=== PATIENT | female | born 1965 | race Caucasian/White ===

== ENCOUNTER 2018-01-16 10:05 | Emergency (ER) | payer MEDICAID ==
[~2018-01-16] VITALS: Ht 162.6 cm; Wt 90.0 kg
[2018-01-16 10:24] VITALS: BP 136/88
[2018-01-16] MEDS ORDERED: CLON0.5T12 PO (11:08)
== END 2018-01-16 11:31 | disposition home or self-care (01) ==
LOC: ER 10:06
DX: F41.9 Anxiety disorder, unspecified (principal); J44.9 Chronic obstructive pulmonary disease, unspecified; F17.200 Nicotine dependence, unspecified, uncomplicated; Z76.0 Encounter for issue of repeat prescription; Z59.0 Homelessness; Z88.2 Allergy status to sulfonamides; Z88.8 Allergy status to other drugs, medicaments and biological substances; Z79.899 Other long term (current) drug therapy
CPT/HCPCS: 99284

== ENCOUNTER 2018-02-27 18:28 | Emergency (ER) | payer MEDICAID ==
[~2018-02-27] VITALS: Ht 162.6 cm; Wt 102.7 kg
[~2018-02-27 18:28] MED LIST: CLON0.5T12 PO
[2018-02-27 18:30] VITALS: BP 126/69
[2018-02-27] MEDS ORDERED: ALBU18HF2 IH (18:54)
== END 2018-02-27 19:05 | disposition home or self-care (01) ==
LOC: ER 18:29
DX: J44.9 Chronic obstructive pulmonary disease, unspecified (principal); F41.9 Anxiety disorder, unspecified; R05 Cough; R06.02 Shortness of breath; F17.210 Nicotine dependence, cigarettes, uncomplicated; Z59.0 Homelessness; Z56.0 Unemployment, unspecified; Z88.2 Allergy status to sulfonamides; Z88.1 Allergy status to other antibiotic agents; Z76.0 Encounter for issue of repeat prescription
CPT/HCPCS: 99283

== ENCOUNTER 2018-07-17 17:32 | Emergency (ER) | payer MEDICAID ==
[~2018-07-17] VITALS: Ht 162.6 cm; Wt 104.5 kg
[~2018-07-17 17:32] MED LIST changes: +ALBU18HF2 IH; +CLON-527 PO; +DEC4T PO
[2018-07-17 17:43] VITALS: BP 148/77
[2018-07-17] MEDS ORDERED: MECL-111 PO (19:05)
== END 2018-07-17 19:16 | disposition home or self-care (01) ==
LOC: ER 17:33
DX: R42 Dizziness and giddiness (principal); E78.00 Pure hypercholesterolemia, unspecified; I10 Essential (primary) hypertension; J44.9 Chronic obstructive pulmonary disease, unspecified; Z59.0 Homelessness; Z56.0 Unemployment, unspecified; Z88.2 Allergy status to sulfonamides; Z88.1 Allergy status to other antibiotic agents; Z79.899 Other long term (current) drug therapy
CPT/HCPCS: 99283

== ENCOUNTER 2018-07-28 15:25 | Emergency (ER) | payer MEDICAID ==
[~2018-07-28] VITALS: Ht 162.6 cm; Wt 110.0 kg
[~2018-07-28 15:25] MED LIST changes: +MECL-111 PO
[2018-07-28 15:32] VITALS: BP 115/80
[2018-07-29] MEDS ORDERED: ALBU6.7H INH (06:29)
[2018-07-29] MEDS ORDERED: AZIT250T PO (06:29)
[2018-07-29] MEDS ORDERED: NAPR-56 PO (07:31)
== END 2018-07-28 17:57 | disposition left against medical advice (07) ==
LOC: ER 15:26
DX: J02.9 Acute pharyngitis, unspecified (principal); Z53.21 Procedure and treatment not carried out due to patient leaving prior to being seen by health care provider

== ENCOUNTER 2018-09-05 09:00 | Emergency (ER) | payer MEDICAID ==
[~2018-09-05] VITALS: Ht 162.6 cm; Wt 113.2 kg
[~2018-09-05 09:00] MED LIST changes: +ALBU6.7H INH; +AZIT250T PO
[2018-09-05 09:13] VITALS: BP 192/83
== END 2018-09-05 09:41 | disposition home or self-care (01) ==
LOC: ER 09:01
DX: M25.522 Pain in left elbow (principal); I10 Essential (primary) hypertension; E66.9 Obesity, unspecified; E78.00 Pure hypercholesterolemia, unspecified; J44.9 Chronic obstructive pulmonary disease, unspecified; Z59.0 Homelessness; Z56.0 Unemployment, unspecified; Z88.1 Allergy status to other antibiotic agents; Z88.2 Allergy status to sulfonamides
CPT/HCPCS: 99281

== ENCOUNTER 2019-05-22 09:39 | Emergency (ER) | payer MEDICAID ==
[~2019-05-22] VITALS: Ht 162.6 cm; Wt 115.0 kg
[~2019-05-22 09:39] MED LIST changes: -ALBU6.7H INH; +ALBU6.7H9 INH; -CLON0.5T12 PO; +CLON0.5T4 PO
[2019-05-22 10:52] LABS: BASOPHILS # (AUTO) 0.2 X10'3 (0-0.2); EOSINOPHILS # (AUTO) 0.3 X10'3 (0-0.9); EOSINOPHILS % (AUTO) 3.6 % (0-6); HEMATOCRIT 44.8 % (35.0-45.0); HEMOGLOBIN 15.2 g/dl (12.0-16.0); LYMPHOCYTES # (AUTO) 2.9 X10'3 (1.1-4.8); LYMPHOCYTES % (AUTO) 32.2 % (21-51); MEAN CORPUSCULAR HEMOGLOBIN 31.6 PG (27.0-31.0); MEAN CORPUSCULAR HGB CONC 33.9 g/dL (33.0-36.5); MEAN CORPUSCULAR VOLUME 93.4 FL (78-98); MEAN PLATELET VOLUME 10.4 FL (7.4-10.4); MONOCYTES # (AUTO) 0.7 X10'3 (0-0.9); MONOCYTES % (AUTO) 7.2 % (2-12); PLATELET COUNT 246 X10'3 (140-440); RED CELL DISTRIBUTION WIDTH 13.1 % (11.5-14.5); WHITE BLOOD COUNT 9.1 X10'3 (4.5-11.0)
[2019-05-22 10:52] LABS: CLARITY,URINE CLEAR (Clear); COLOR,URINE YELLOW (Yellow); GLUCOSE, URINE NEGATIVE (Neg); KETONES,URINE NEGATIVE (Neg); LEUKOCYTE ESTERASE ,URINE NEGATIVE (Neg); NITRITES, URINE NEGATIVE (Neg); OCCULT BLOOD,URINE NEGATIVE (Neg); PROTEIN,URINE NEGATIVE (Neg); UA COLLECTION TYPE CLN CATCH MIDSTREAM; URINE HCG NEGATIVE (NEG); UROBILINOGEN,URINE 0.2 E.U/dL (0.2-1.0)
[2019-05-22 11:03] LABS: ALANINE AMINOTRANSFERASE 26 U/L (12-78); ALBUMIN 3.5 G/DL (3.4-5.0); ALBUMIN/GLOBULIN RATIO 0.9 (1.1-1.5); ALKALINE PHOSPHATASE 63 IU/L (46-116); ANION GAP 5 (8-16); ASPARTATE AMINO TRANSFERASE 11 U/L (10-37); BILIRUBIN,TOTAL 0.3 MG/DL (0.1-1.0); BLOOD UREA NITROGEN 15 MG/DL (7-18); BUN/CREATININE RATIO 18.8 (6.6-38.0); CALCIUM 8.7 MG/DL (8.5-10.1); CHLORIDE 107 MMOL/L (99-107); GLUCOSE 93 MG/DL (70-104); POTASSIUM 4.2 MMOL/L (3.5-5.1); SODIUM 140 MMOL/L (135-145); TOTAL PROTEIN 7.4 G/DL (6.4-8.2); eGFR 75 ML/MIN
[2019-05-22 11:09] VITALS: BP 136/75
== END 2019-05-22 11:27 | disposition home or self-care (01) ==
LOC: ER 09:39
DX: R10.9 Unspecified abdominal pain (principal); E78.00 Pure hypercholesterolemia, unspecified; I10 Essential (primary) hypertension; J44.9 Chronic obstructive pulmonary disease, unspecified; F41.9 Anxiety disorder, unspecified; E66.9 Obesity, unspecified; Z88.2 Allergy status to sulfonamides; Z88.1 Allergy status to other antibiotic agents; Z79.899 Other long term (current) drug therapy; Z79.2 Long term (current) use of antibiotics; Z59.0 Homelessness; Z56.0 Unemployment, unspecified
CPT/HCPCS: 36415; 80053; 81003; 81025; 85025; 99283

== ENCOUNTER 2019-06-10 09:07 | Emergency (ER) | payer MEDICAID ==
[~2019-06-10] VITALS: Ht 162.6 cm; Wt 150.0 kg
[2019-06-10 09:18] VITALS: BP 133/71
[2019-06-10] MEDS ORDERED: guaiFENesin/DM/phenylephrine syrup 120ml bottle PO ONE (10:55)
[2019-06-10] MEDS ORDERED: benzonatate 100mg capsule PO ONE (10:55)
[2019-06-10] MEDS ORDERED: BENZ-16 PO (10:58)
[2019-06-10] MEDS ORDERED: ROBCFL PO (10:58)
[2019-06-10] MEDS ORDERED: ALBU8HFA PO (10:58)
[2019-06-10] MEDS ORDERED: guaiFENesin/DM 10ml UD oral syrup PO ONE (11:05)
== END 2019-06-10 11:38 | disposition home or self-care (01) ==
LOC: ER 09:07
DX: J20.9 Acute bronchitis, unspecified (principal); E78.00 Pure hypercholesterolemia, unspecified; I10 Essential (primary) hypertension; J44.9 Chronic obstructive pulmonary disease, unspecified; F41.9 Anxiety disorder, unspecified; Z56.0 Unemployment, unspecified; Z59.0 Homelessness; Z88.2 Allergy status to sulfonamides; Z88.1 Allergy status to other antibiotic agents; Z79.899 Other long term (current) drug therapy
CPT/HCPCS: 71045; 99283

== ENCOUNTER 2019-11-26 09:29 | Emergency (ER) | payer MEDICAID ==
[~2019-11-26] VITALS: Ht 162.6 cm; Wt 105.7 kg
[~2019-11-26 09:29] MED LIST changes: -MECL-111 PO; +MECL-159 PO
--- NOTE | 2019-11-26 10:45 | NUR ---
pt came back from x ray by herself ,no discomfort noted.
--- NOTE | 2019-11-26 11:12 | NUR ---
Pt resting comfortably in no acute distress.
--- NOTE | 2019-11-26 11:35 | NUR ---
Pt provided jello and cup of water for PO challenge. Will reassess Pt tolerance.
--- NOTE | 2019-11-26 11:40 | NUR ---
Pt tolerated PO challenge with no c/o N/V.
[2019-11-26 12:06] VITALS: BP 142/77
== END 2019-11-26 11:55 | disposition home or self-care (01) ==
LOC: ER 09:30
DX: T18.9XXA Foreign body of alimentary tract, part unspecified, initial encounter (principal); K13.79 Other lesions of oral mucosa; R10.12 Left upper quadrant pain; K56.7 Ileus, unspecified; Z59.0 Homelessness; Z56.0 Unemployment, unspecified; Z88.0 Allergy status to penicillin; Z79.899 Other long term (current) drug therapy; X58.XXXA Exposure to other specified factors, initial encounter; Y93.89 Activity, other specified; Y92.89 Other specified places as the place of occurrence of the external cause; Y99.8 Other external cause status
CPT/HCPCS: 74018; 99283

== ENCOUNTER 2020-01-09 09:47 | Emergency (ER) | payer MEDICAID ==
[~2020-01-09] VITALS: Ht 162.6 cm; Wt 106.4 kg
[2020-01-09 10:51] LABS: CLARITY,URINE TURBID (Clear); COLOR,URINE STRAW (Yellow); GLUCOSE, URINE NEGATIVE (Neg); KETONES,URINE NEGATIVE (Neg); LEUKOCYTE ESTERASE ,URINE LARGE (Neg); NITRITES, URINE NEGATIVE (Neg); OCCULT BLOOD,URINE LARGE (Neg); PROTEIN,URINE 30 mg/dl (Neg); UROBILINOGEN,URINE 0.2 E.U/dL (0.2-1.0)
[2020-01-09 10:53] LABS: UA COLLECTION TYPE CLN CATCH MIDSTREAM
[2020-01-09] MEDS ORDERED: CEPH500C5 PO (11:04)
[2020-01-09] MEDS ORDERED: cephalexin 250mg capsule PO ONE (11:05)
[2020-01-09 11:08] LABS: MUCUS STRANDS FEW /LPF (Neg); RBC,URINE 0-2 /HPF (0-2); SQUAMOUS EPITHELIAL CELL,UR MODERATE /LPF (FEW); WBC,URINE TNTC /HPF (0-4)
[2020-01-09 11:09] LABS: BACTERIA,URINE 1+ /HPF (Neg)
[2020-01-09 11:31] VITALS: BP 120/65
== END 2020-01-09 11:33 | disposition home or self-care (01) ==
LOC: ER 09:47
DX: N39.0 Urinary tract infection, site not specified (principal); E78.00 Pure hypercholesterolemia, unspecified; I10 Essential (primary) hypertension; J43.9 Emphysema, unspecified; F41.9 Anxiety disorder, unspecified; F17.210 Nicotine dependence, cigarettes, uncomplicated; Z98.890 Other specified postprocedural states; Z56.0 Unemployment, unspecified; Z88.2 Allergy status to sulfonamides; Z88.1 Allergy status to other antibiotic agents; Z79.2 Long term (current) use of antibiotics; Z79.899 Other long term (current) drug therapy
CPT/HCPCS: 81001; 87077; 87088; 87186; 99283

== ENCOUNTER 2020-01-19 16:41 | Emergency (ER) | payer MEDICAID ==
[~2020-01-19] VITALS: Ht 170.2 cm; Wt 110.0 kg
[~2020-01-19 16:41] MED LIST changes: +CEPH500C5 PO
[2020-01-19 16:47] VITALS: BP 150/82
[2020-01-19] MEDS ORDERED: proparacaine 0.5% ophthalmic drops 15ml EACHEYE ONE (17:30)
[2020-01-19] MEDS ORDERED: tobramycin/dexamethasone ophthalmic suspension EACHEYE ONE (18:10)
[2020-01-20] MEDS ORDERED: PERM60CR4 TOP (16:06)
== END 2020-01-19 18:40 | disposition home or self-care (01) ==
LOC: ER 16:41
DX: H10.213 Acute toxic conjunctivitis, bilateral (principal); E78.00 Pure hypercholesterolemia, unspecified; I10 Essential (primary) hypertension; J43.9 Emphysema, unspecified; F41.9 Anxiety disorder, unspecified; F32.9 Major depressive disorder, single episode, unspecified; F17.200 Nicotine dependence, unspecified, uncomplicated; Z56.0 Unemployment, unspecified; Z88.2 Allergy status to sulfonamides; Z88.8 Allergy status to other drugs, medicaments and biological substances; Z79.899 Other long term (current) drug therapy
CPT/HCPCS: 99282; 99283

== ENCOUNTER 2020-01-20 15:53 | Emergency (ER) | payer MEDICAID ==
[~2020-01-20] VITALS: Ht 162.6 cm; Wt 103.2 kg
[2020-01-20] MEDS ORDERED: PERM60CR4 TOP (16:06)
[2020-01-20 16:25] VITALS: BP 98/51
[2020-01-20] MEDS ORDERED: tobramycin/dexamethasone ophthalmic suspension LEFTEYE PRN (16:50)
[2020-01-20] MEDS ORDERED: tobramycin/dexamethasone ophthalmic suspension LEFTEYE SCH (16:52)
== END 2020-01-20 17:02 | disposition home or self-care (01) ==
LOC: ER 15:55
DX: B85.2 Pediculosis, unspecified (principal); H10.213 Acute toxic conjunctivitis, bilateral; E78.00 Pure hypercholesterolemia, unspecified; I10 Essential (primary) hypertension; J45.909 Unspecified asthma, uncomplicated; J43.9 Emphysema, unspecified; F41.9 Anxiety disorder, unspecified; F32.9 Major depressive disorder, single episode, unspecified; F17.210 Nicotine dependence, cigarettes, uncomplicated; Z87.440 Personal history of urinary (tract) infections; Z98.890 Other specified postprocedural states; Z88.2 Allergy status to sulfonamides; Z88.1 Allergy status to other antibiotic agents; Z79.2 Long term (current) use of antibiotics; Z79.899 Other long term (current) drug therapy
CPT/HCPCS: 99282; 99283

== ENCOUNTER 2022-03-11 08:15 | Emergency (ER) | payer MEDICAID ==
[~2022-03-11] VITALS: Ht 162.6 cm; Wt 95.0 kg
[~2022-03-11 08:15] MED LIST changes: -CEPH500C5 PO; +PERM60CR4 TOP
[2022-03-11 08:28] VITALS: BP 134/90
== END 2022-03-11 08:56 | disposition home or self-care (01) ==
LOC: ER 08:16
DX: S39.012A Strain of muscle, fascia and tendon of lower back, initial encounter (principal); I10 Essential (primary) hypertension; E78.00 Pure hypercholesterolemia, unspecified; J44.9 Chronic obstructive pulmonary disease, unspecified; Z88.2 Allergy status to sulfonamides; Z88.1 Allergy status to other antibiotic agents; Z56.0 Unemployment, unspecified; X58.XXXA Exposure to other specified factors, initial encounter; Y93.89 Activity, other specified; Y92.89 Other specified places as the place of occurrence of the external cause; Y99.8 Other external cause status
CPT/HCPCS: 99281

== ENCOUNTER 2023-03-09 10:12 | Emergency (ER) | payer MEDICAID ==
[~2023-03-09] VITALS: Ht 162.6 cm; Wt 100.4 kg
[~2023-03-09 10:12] MED LIST changes: +ALBU6.7H14 INH; -ALBU6.7H9 INH
[2023-03-09 10:28] VITALS: BP 142/74; PULSE 84; RESP 16; TEMP 98.7; O2SAT 94
[2023-03-09 10:55] LABS: BILIRUBIN,URINE NEGATIVE (Neg); CLARITY,URINE SLIGHTLY CLOUDY (Clear); COLOR,URINE YELLOW (Yellow); GLUCOSE, URINE NEGATIVE (Neg); KETONES,URINE NEGATIVE (Neg); LEUKOCYTE ESTERASE ,URINE LARGE (Neg); NITRITES, URINE NEGATIVE (Neg); OCCULT BLOOD,URINE MODERATE (Neg); PROTEIN,URINE NEGATIVE (Neg); UROBILINOGEN,URINE 0.2 E.U/dL (0.2-1.0)
[2023-03-09 11:04] LABS: UA COLLECTION TYPE CLN CATCH MIDSTREAM
[2023-03-09 11:05] LABS: WBC,URINE TNTC /HPF (0-4)
[2023-03-09 11:06] LABS: BACTERIA,URINE 1+ /HPF (Neg); MUCUS STRANDS NONE SEEN /LPF (Neg); SQUAMOUS EPITHELIAL CELL,UR FEW /LPF (FEW); WBC CLUMPS,URINE FEW /HPF (NEGATIVE)
[2023-03-09] MEDS ORDERED: NITR100C6 PO (13:21)
== END 2023-03-09 13:36 | disposition home or self-care (01) ==
LOC: ER 10:13
DX: N39.0 Urinary tract infection, site not specified (principal); E78.00 Pure hypercholesterolemia, unspecified; I10 Essential (primary) hypertension; J44.9 Chronic obstructive pulmonary disease, unspecified; Z88.2 Allergy status to sulfonamides; Z88.1 Allergy status to other antibiotic agents; Z79.82 Long term (current) use of aspirin; Z79.899 Other long term (current) drug therapy
CPT/HCPCS: 81001; 87077; 87088; 87186; 99284; A4565; A6446; A6449

== ENCOUNTER 2023-11-21 18:49 | Emergency (ER) | payer MEDICAID ==
[~2023-11-21] VITALS: Ht 162.6 cm; Wt 101.8 kg
[~2023-11-21 18:49] MED LIST changes: -MECL-159 PO; +MECL-302 PO; +NITR100C6 PO
[2023-11-21] MEDS ORDERED: ketorolac trometh inj. 60 MG/2 ML VIAL IM ONE (20:25)
[2023-11-21] MEDS: ketorolac tromethamine 15mg/ml inj. IM ONE (20:57)
[2023-11-21] MEDS: dexamethasone sod phosphate 10mg/ml inj IM STA (20:58)
[2023-11-21] MEDS ORDERED: CYCL-1 PO (20:58)
[2023-11-21] MEDS ORDERED: LIDO700A32 TOP (20:58)
[2023-11-21] MEDS: cyclobenzaprine 10mg tablet PO ONE (20:58)
[2023-11-21 21:10] VITALS: BP 157/77; PULSE 77; RESP 16; TEMP 98.1; O2SAT 97
[2023-11-22] MEDS ORDERED: PRED20TA PO (12:05)
[2023-11-22] MEDS ORDERED: HYDR-3965 PO (12:05)
== END 2023-11-21 21:13 | disposition home or self-care (01) ==
LOC: ER 18:50
DX: M47.816 Spondylosis without myelopathy or radiculopathy, lumbar region (principal); M54.41 Lumbago with sciatica, right side; M54.42 Lumbago with sciatica, left side; E78.00 Pure hypercholesterolemia, unspecified; I10 Essential (primary) hypertension; J43.9 Emphysema, unspecified; Z56.0 Unemployment, unspecified; Z79.2 Long term (current) use of antibiotics; Z79.899 Other long term (current) drug therapy
CPT/HCPCS: 72100; 73502; 96372; 99284; J1100; J1885

== ENCOUNTER 2023-11-22 10:06 | Emergency (ER) | payer MEDICAID ==
[~2023-11-22] VITALS: Ht 162.6 cm; Wt 102.8 kg
[~2023-11-22 10:06] MED LIST changes: +CYCL-1 PO; +LIDO700A32 TOP
[2023-11-22 10:28] VITALS: BP 172/88; PULSE 97; O2SAT 94
[2023-11-22] MEDS ORDERED: HYDR-3965 PO (12:05)
[2023-11-22] MEDS ORDERED: PRED20TA PO (12:05)
[2023-11-22 12:11] VITALS: RESP 14
[2023-11-22] MEDS: HYDROcodone/acetaminophen 10/325mg tab PO ONE (12:11)
[2023-11-22 12:20] VITALS: TEMP 98
== END 2023-11-22 12:27 | disposition home or self-care (01) ==
LOC: ER 10:07
DX: M54.50 Low back pain, unspecified (principal); E78.00 Pure hypercholesterolemia, unspecified; I10 Essential (primary) hypertension; J44.9 Chronic obstructive pulmonary disease, unspecified; Z88.2 Allergy status to sulfonamides; Z88.1 Allergy status to other antibiotic agents; Z79.899 Other long term (current) drug therapy; Z79.2 Long term (current) use of antibiotics
CPT/HCPCS: 99283

== ENCOUNTER 2024-02-08 12:51 | Emergency (ER) | payer MEDICAID ==
[~2024-02-08] VITALS: Ht 162.6 cm; Wt 101.6 kg
[2024-02-08 13:50] VITALS: BP 134/76; PULSE 89; RESP 19; O2SAT 95
[2024-02-08] MEDS ORDERED: HYDR-3965 PO (14:30)
[2024-02-08 14:41] VITALS: TEMP 98.4
== END 2024-02-08 14:45 | disposition home or self-care (01) ==
LOC: ER 12:52
DX: G89.29 Other chronic pain (principal); M25.552 Pain in left hip; M25.551 Pain in right hip; E78.00 Pure hypercholesterolemia, unspecified; I10 Essential (primary) hypertension; J45.909 Unspecified asthma, uncomplicated; F41.9 Anxiety disorder, unspecified; F32.A Depression, unspecified; Z98.890 Other specified postprocedural states; Z56.0 Unemployment, unspecified; Z88.2 Allergy status to sulfonamides; Z88.8 Allergy status to other drugs, medicaments and biological substances; Z79.899 Other long term (current) drug therapy
CPT/HCPCS: 99283

== ENCOUNTER 2024-03-20 13:39 | Emergency (ER) | payer MEDICAID ==
[~2024-03-20] VITALS: Ht 162.6 cm; Wt 96.8 kg
[2024-03-20] MEDS: HYDROcodone/acetaminophen 10/325mg tab PO ONE (14:32)
[2024-03-20] MEDS: naproxen 500mg tablet PO ONE (14:38)
[2024-03-20] MEDS ORDERED: HYDR-3972 PO ×2 (14:50→14:52)
[2024-03-20 15:05] VITALS: BP 124/76; PULSE 70; RESP 16; TEMP 97.8; O2SAT 98
== END 2024-03-20 15:06 | disposition home or self-care (01) ==
LOC: ER 13:41
DX: S92.902D Unspecified fracture of left foot, subsequent encounter for fracture with routine healing (principal); E78.00 Pure hypercholesterolemia, unspecified; I10 Essential (primary) hypertension; J44.9 Chronic obstructive pulmonary disease, unspecified; F32.A Depression, unspecified; F41.9 Anxiety disorder, unspecified; Z88.2 Allergy status to sulfonamides; Z88.1 Allergy status to other antibiotic agents; Z79.899 Other long term (current) drug therapy; Z79.2 Long term (current) use of antibiotics; X58.XXXD Exposure to other specified factors, subsequent encounter
CPT/HCPCS: 99284

== ENCOUNTER 2025-05-11 10:52 | Outpatient (CLI) | payer MEDICAID ==
[~2025-05-11 10:52] MED LIST changes: +HYDR-3972 PO; +LIDO-52 TOP; -LIDO700A32 TOP; +PERM60CR21 TOP; -PERM60CR4 TOP
--- NOTE | 2025-05-11 11:51 | ELECTROCARDIOGRAPH REPORT ---
[facility] Test Date: 2025-05-11 Test Time: 11:25:49 Pat Name: GABRIELLA LOPEZ Department: PRE/OP CARDIOLOGY Room: Gender: F Cord Cutter: : 1965 Requested By: CORINNA MUSTAFA Order Number: [id number] Reading MD: Dr. ALEX Celis Measurements Intervals [place] Rate: 71 P: 75 UT: 133 QRS: 59 QRSD: 99 T: 65 QT: 414 QTc: 450 Interpretive Statements Sinus rhythm Borderline Q waves in inferior leads Baseline wander in lead(s) V3 Electronically Signed On 05-11-2025 18:20:[address] ALEX Celis Please click the below link to view image of tracing.
== END 2025-05-11 23:59 | disposition home or self-care (01) ==
LOC: RAD 10:52
PROVIDERS: ATTEND Psychiatry & Neurology Psychiatry
DX: F25.0 Schizoaffective disorder, bipolar type (principal); I10 Essential (primary) hypertension
CPT/HCPCS: 93005